=== PATIENT | male | born 1985 | race Native Hawaiian/Other Pacific Islander ===

== ENCOUNTER 2016-09-12 12:57 | Emergency (ER) | payer MEDICAID ==
[~2016-09-12] VITALS: Ht 172.7 cm; Wt 128.8 kg
[2016-09-12 14:54] VITALS: BP 138/82
== END 2016-09-12 14:59 | disposition home or self-care (01) ==
LOC: ER 13:03
DX: K04.7 Periapical abscess without sinus (principal); G89.29 Other chronic pain; M54.5 Low back pain

== ENCOUNTER 2016-10-14 11:49 | Emergency (ER) | payer MEDICAID ==
[~2016-10-14] VITALS: Ht 170.2 cm; Wt 124.7 kg
[2016-10-14 12:17] VITALS: BP 130/82
== END 2016-10-14 12:28 | disposition left against medical advice (07) ==
LOC: ER 11:49
DX: M54.9 Dorsalgia, unspecified (principal); Z53.21 Procedure and treatment not carried out due to patient leaving prior to being seen by health care provider